=== PATIENT | male | born 2000 | race Two or more races ===

== ENCOUNTER → 2022-05-15 | Outpatient (CLI) | payer OTHER | LOC: M CARPUL 13:52 | PROVIDERS: ATTEND Internal Medicine Cardiovascular Disease | DX: R06.02 Shortness of breath (principal) ==

== ENCOUNTER → 2022-06-05 | Outpatient (CLI) | payer OTHER ==
[~2022-06-05] MED LIST: METHACHOLINE KIT INH ONE
== END ==
LOC: M CARPUL 14:48
PROVIDERS: ATTEND Internal Medicine Cardiovascular Disease
DX: R06.02 Shortness of breath (principal)
CPT/HCPCS: 94070; J7674